=== PATIENT | female | born 1970 | race Caucasian/White ===

== ENCOUNTER 2016-11-19 20:59 | Observation (INO) | payer BC ==
[2016-11-19 21:49] LABS: % IMMATURE GRANULYOCYTES 0.2 % (0.0-1.1); ABSOLUTE IMMATURE GRANULOCYTES 0.02 10^3/uL (0.00-0.10); ADD DIFF? NO; ADD MORPH? NO; ADD SCAN? NO; ATYPICAL LYMPHOCYTE FLAG 10 (0-99); FRAGMENT RBC FLAG 0 (0-99); HEMATOCRIT 38.1 % (38.0-47.0); LEFT SHIFT FLG 0 (0-99); LIPEMIA HEMOLYSIS FLAG 90 (0-99); MEAN CELL HEMOGLOBIN 30.7 pg (27.9-34.1); MEAN CELL HEMOGLOBIN CONCENTR. 34.1 g/dL (32.4-36.7); MEAN CELL VOLUME 89.9 fL (81.5-99.8); MEAN PLATELET VOLUME 10.7 fL (8.7-11.7); PLATELET CLUMPS FLAG 0 (0-99); PLATELET COUNT 257 10^3/uL (150-400); RED BLOOD CELL COUNT 4.24 10^6/uL (4.18-5.33); RED CELL DISTRIBUTION WIDTH 12.5 % (11.5-15.2)
[2016-11-19] MEDS ORDERED: NS 1,000 ML IV ONE (21:49)
[2016-11-19 22:01] LABS: ANION GAP 13 mEq/L (8-16); CALCIUM 9.8 mg/dL (8.5-10.4); CARBON DIOXIDE 22 mEq/l (22-31); CHLORIDE 104 mEq/L (97-110); CREATININE 0.7 mg/dL (0.6-1.0); GLOMERULAR FILTRATION RATE > 60; GLUCOSE 103 mg/dL (70-100); POTASSIUM 3.8 mEq/L (3.5-5.2); SODIUM 139 mEq/L (134-144)
[2016-11-19] MEDS ORDERED: HYDROmorphONE/DILAUDID 1 MG/ML SYR IVP ONE (22:11)
[2016-11-19] MEDS ORDERED: ONDANSETRON 4 MG/2 ML VIAL IVP ONE (22:11)
--- NOTE | 2016-11-19 22:11 | EDPHY ---
H & P Stated Complaint: C/O abd pain x 4 days. Worsening last nigh tinto today. 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 She presents emergency room stating that she has had 4 days of abdominal pain she describes a dull ache she thought it was gas pain that she thought was related to her iron that she takes. She states she did see black stool 1 point. She is unsure of her iron was causing this. She has a gastroenterology appointment tomorrow. She has not had any vomiting but she does report nausea. She complains of mid abdominal pain dull ache. And a little bit no right lower quadrant. She does tell me distally gets worse after she eats and drinks. 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 Past Surgical History: No recent surgery Social History: Denies daily use drugs alcohol tobacco products. Family History: Noncontributory ROS REVIEW OF SYSTEMS: A comprehensive 10 point review of systems is otherwise negative aside from elements mentioned in the history of present illness. Exam Constitutional triage nursing summary reviewed, vital signs reviewed, awake/ alert. Eyes normal conjunctivae and sclera, EOMI, PERRLA. HENT normal inspection, atraumatic, moist mucus membranes, no epistaxis, neck supple/ no meningismus, no raccoon eyes. Respiratory clear to auscultation bilaterally, normal breath sounds, no respiratory distress, no wheezing. Cardiovascular rate normal, regular rhythm, no murmur, no edema, distal pulses normal. Gastrointestinal soft, mild tender palpation right upper quadrant and right mid abdomen also a mild tenderness in the right lower quadrant, no rebound, no guarding, normal bowel sounds, no distension, no pulsatile mass. Genitourinary no CVA tenderness. Musculoskeletal no midline vertebral tenderness, full range of motion, no calf swelling, no tenderness of extremities, no meningismus, good pulses, neurovascularly intact. Skin pink, warm, & dry, no rash, skin atraumatic. Neurologic awake, alert and oriented x 3, AAOx3, moves all 4 extremities equally, motor intact, sensory intact, CN II-XII intact, normal cerebellar, normal vision, normal speech. Psychiatric normal mood/affect. Heme/Lymph/Immune no lymphadenopathy. Differential diagnosis includes but is not limited to and in no particular order : Bowel obstruction, appendicitis, gallbladder disease, diverticulitis, colitis , enteritis, perforated viscus, gastritis, GERD, esophagitis, urinary tract infection, pyelonephritis, kidney stones Medical Decision Making: Plan for this patient IV establishment with blood draw , IV fluids, Zofran for nausea GI cocktail, stool studies, abdominal blood work , ultrasound right upper quadrant for gallbladder. May need to proceed with CT scan. Check test and urinalysis. Re-evaluation: 1227AM: I did go re-evaluate this patient this time she tells me she feels much better after GI cocktail. She is requesting discharge home. She has a follow-up appoint with her fountain brush assembler and GI doctor tomorrow. I went over her blood work with her and ultrasound report. She does have these 2 nodular nonspecific liver masses that the patient states has been previously worked up for focal nodular hyperplasia. I have given her ultrasound report. Given that she feels better after GI cocktail it is possible she has an ulcer. She still at this time going to provide us with a stool sample. I did reexamine her abdomen is soft nontender no guarding or peritoneal signs. She feels better would like to go home. She has follow-up appoint with GI tomorrow. She may need EGD for ulcer evaluation. She does understand return emergency room she develops worsening abdominal pain fever vomiting. Bloody stool. Source: Patient - Personal History LMP (Females 10-55): 8-14 Days Ago Current Tetanus/Diphtheria Vaccine: Unsure Current Tetanus Diphtheria and Acellular Pertussis (TDAP): Unsure - Medical/Surgical History Hx Asthma: Yes Hx Chronic Respiratory Disease: Yes Hx Diabetes: No Hx Cardiac Disease: No Hx Renal Disease: No Hx Cirrhosis: No Hx Alcoholism: No Hx HIV/AIDS: No Hx Splenectomy or Spleen Trauma: No Other PMH: ankylosing spondulosis, chrons disease, celiac disease, hashitoxicosis. - Social History Smoking Status: Former smoker Constitutional: Initial Vital Signs Temperature (C) 37 C 11/19/16 21:05 Heart Rate 102 H 11/19/16 21:05 Respiratory Rate 18 11/19/16 21:05 Blood Pressure 139/74 H 11/19/16 21:05 O2 Sat (%) 98 11/19/16 21:05 O2 Delivery Mode Room Air Allergies/Adverse Reactions: levofloxacin [From Levaquin] Allergy (Verified 11/19/16 21:13) nitrofurantoin [From Macrobid] Allergy (Verified 11/19/16 21:14) Sulfa (Sulfonamide Antibiotics) Allergy (Verified 11/19/16 21:14) Home Medications: Medication Instructions Recorded NK [No Known Home Meds] 11/19/16 Medical Decision Making - Diagnostics Imaging Results: Imaging Impressions Abdomen Ultrasound 11/19/16 22:24 Impression: 2 nonspecific liver masses. Patient states there is a history of focal nodular hyperplasia. Recommend comparing to prior imaging or obtaining a multiphase postcontrast MRI of the abdomen for further evaluation. Otherwise unremarkable right upper quadrant ultrasound. Results called and discussed with Mani Chatman MD at 11/19/2016 23:34. - Data Points Laboratory Results: Laboratory Results 11/19/16 21:40 11/19/16 21:40 11/19/16 11/19/16 11/19/16 23:24 22:30 21:40 WBC RBC Hgb Hct MCV MCH MCHC RDW Plt Count MPV Neut % (Auto) Lymph % (Auto) Bee % (Auto) Eos % (Auto) Baso % (Auto) Nucleat RBC Rel Count Absolute Neuts (auto) Absolute Lymphs (auto) Absolute Monos (auto) Absolute Eos (auto) Absolute Basos (auto) Absolute Nucleated RBC Immature Gran % Immature Gran # PT INR APTT VBG Lactic Acid 0.7 mmol/L mmol/L (0.7-2.1) Sodium Potassium Chloride Carbon Dioxide Anion Gap BUN Creatinine Estimated GFR Glucose Calcium Total Bilirubin Conjugated Bilirubin Unconjugated Bilirubin AST ALT Alkaline Phosphatase Troponin I Total Protein Albumin Lipase Beta HCG, Qual NEGATIVE Urine Color PALE YELLOW Urine Appearance CLEAR Urine pH 5.0 (5.0-7.5) Ur Specific [place] 1.006 (1.002-1.030) Urine Protein NEGATIVE (NEGATIVE) Urine Ketones TRACE H (NEGATIVE) Urine Blood 2+ H (NEGATIVE) Urine Nitrate NEGATIVE (NEGATIVE) Urine Bilirubin NEGATIVE (NEGATIVE) Urine Urobilinogen NEGATIVE EU EU (0.2-1.0) Ur Leukocyte Esterase NEGATIVE (NEGATIVE) Urine RBC 5-10 /hpf H /hpf (0-3) Urine WBC 1-3 /hpf /hpf (0-3) Ur Epithelial Cells TRACE /lpf /lpf (NONE-1+) Urine Bacteria TRACE /hpf H /hpf (NONE SEEN) Urine Mucus TRACE /lpf /lpf (NONE-1+) Urine Glucose NEGATIVE (NEGATIVE) 11/19/16 11/19/16 11/19/16 21:40 21:40 21:40 WBC RBC Hgb Hct MCV MCH MCHC RDW Plt Count MPV Neut % (Auto) Lymph % (Auto) Bee % (Auto) Eos % (Auto) Baso % (Auto) Nucleat RBC Rel Count Absolute Neuts (auto) Absolute Lymphs (auto) Absolute Monos (auto) Absolute Eos (auto) Absolute Basos (auto) Absolute Nucleated RBC Immature Gran % Immature Gran # PT 13.3 SEC SEC (12.0-15.0) INR 1.02 (0.83-1.16) APTT 25.2 SEC SEC (23.0-38.0) VBG Lactic Acid Sodium 139 mEq/L mEq/L (134-144) Potassium 3.8 mEq/L mEq/L (3.5-5.2) Chloride 104 mEq/L mEq/L (97-110) Carbon Dioxide 22 mEq/l mEq/l (22-31) Anion Gap 13 mEq/L mEq/L (8-16) BUN 14 mg/dL mg/dL (7-23) Creatinine 0.7 mg/dL mg/dL (0.6-1.0) Estimated GFR > 60 Glucose 103 mg/dL H mg/dL (70-100) Calcium 9.8 mg/dL mg/dL (8.5-10.4) Total Bilirubin 0.7 mg/dL mg/dL (0.1-1.4) Conjugated Bilirubin 0.3 mg/dL mg/dL (0.0-0.5) Unconjugated Bilirubin 0.4 mg/dL mg/dL (0.0-1.1) AST 21 IU/L IU/L (14-46) ALT 28 IU/L IU/L (9-52) Alkaline Phosphatase 69 IU/L IU/L (38-126) Troponin I < 0.012 ng/mL ng/mL (0.000-0.034) Total Protein 8.2 g/dL g/dL (6.3-8.2) Albumin 4.7 g/dL g/dL (3.5-5.0) Lipase 63 IU/L IU/L (23-300) Beta HCG, Qual Urine Color Urine Appearance Urine pH Ur Specific [place] Urine Protein Urine Ketones Urine Blood Urine Nitrate Urine Bilirubin Urine Urobilinogen Ur Leukocyte Esterase Urine RBC Urine WBC Ur Epithelial Cells Urine Bacteria Urine Mucus Urine Glucose 11/19/16 21:40 WBC 11.70 10^3/uL H 10^3/uL (3.80-9.50) RBC 4.24 10^6/uL 10^6/uL (4.18-5.33) Hgb 13.0 g/dL g/dL (12.6-16.3) Hct 38.1 % % (38.0-47.0) MCV 89.9 fL fL (81.5-99.8) MCH 30.7 pg pg (27.9-34.1) MCHC 34.1 g/dL g/dL (32.4-36.7) RDW 12.5 % % (11.5-15.2) Plt Count 257 10^3/uL 10^3/uL (150-400) MPV 10.7 fL fL (8.7-11.7) Neut % (Auto) 77.2 % H % (39.3-74.2) Lymph % (Auto) 15.0 % % (15.0-45.0) Bee % (Auto) 6.9 % % (4.5-13.0) Eos % (Auto) 0.4 % L % (0.6-7.6) Baso % (Auto) 0.3 % % (0.3-1.7) Nucleat RBC Rel Count 0.0 % % (0.0-0.2) Absolute Neuts (auto) 9.02 10^3/uL H 10^3/uL (1.70-6.50) Absolute Lymphs (auto) 1.76 10^3/uL 10^3/uL (1.00-3.00) Absolute Monos (auto) 0.81 10^3/uL H 10^3/uL (0.30-0.80) Absolute Eos (auto) 0.05 10^3/uL 10^3/uL (0.03-0.40) Absolute Basos (auto) 0.04 10^3/uL 10^3/uL (0.02-0.10) Absolute Nucleated RBC 0.00 10^3/uL 10^3/uL (0-0.01) Immature Gran % 0.2 % % (0.0-1.1) Immature Gran # 0.02 10^3/uL 10^3/uL (0.00-0.10) PT INR APTT VBG Lactic Acid Sodium Potassium Chloride Carbon Dioxide Anion Gap BUN Creatinine Estimated GFR Glucose Calcium Total Bilirubin Conjugated Bilirubin Unconjugated Bilirubin AST ALT Alkaline Phosphatase Troponin I Total Protein Albumin Lipase Beta HCG, Qual Urine Color Urine Appearance Urine pH Ur Specific [place] Urine Protein Urine Ketones Urine Blood Urine Nitrate Urine Bilirubin Urine Urobilinogen Ur Leukocyte Esterase Urine RBC Urine WBC Ur Epithelial Cells Urine Bacteria Urine Mucus Urine Glucose Medications Given: Discontinued Medications Al Hydroxide/Mg Hydroxide (Maalox Susp) 30 ml PO ONCE ONE Stop: 11/19/16 22:25 Last Admin: 11/19/16 22:43 Dose: 30 ml Sodium Chloride (Ns) 1,000 mls @ 0 mls/hr IV ONCE ONE PRN Reason: Wide Open Stop: 11/19/16 21:50 Last Admin: 11/19/16 21:50 Dose: 1,000 mls Departure - Departure Disposition: Home, Routine, Self-Care Clinical Impression: Abdominal pain Qualifiers: Abdominal location: generalized Qualified Code(s): R10.84 - Generalized abdominal pain Condition: Good Instructions: Abdominal Pain (ED) Additional Instructions: 1. Return emergency room if develops worsening abdominal pain fever vomiting. 2. Please follow up with Gastroenterology tomorrow at your previously scheduled appointment as well as your fountain brush assembler. Referrals: DAVID NESS [Primary Care Provider] - As per Instructions
[2016-11-19] MEDS ORDERED: MAG HYDROX/AL HYDROX/SIMETH 30 ML UDCUP PO ONE (22:24)
[2016-11-19] MEDS ORDERED: HYOSCYAMINE SULFATE 0.125 MG TAB PO ONE (22:24)
[2016-11-19] MEDS ORDERED: LIDOCAINE 2% VISCOUS 15 ML UDCUP PO ONE (22:24)
[2016-11-19 22:32] LABS: ALANINE AMINOTRANSFERASE 28 IU/L (9-52); ALBUMIN 4.7 g/dL (3.5-5.0); ALKALINE PHOSPHATASE 69 IU/L (38-126); ASPARTATE AMINOTRANSFERASE 21 IU/L (14-46); BILIRUBIN,TOTAL 0.7 mg/dL (0.1-1.4); BILIRUBIN-CONJUGATED 0.3 mg/dL (0.0-0.5); BILIRUBIN-UNCONJUGATED 0.4 mg/dL (0.0-1.1); TOTAL PROTEIN 8.2 g/dL (6.3-8.2)
[2016-11-19 22:37] LABS: INR 1.02 (0.83-1.16); PROTIME(PATIENT) 13.3 SEC (12.0-15.0)
[2016-11-19 22:38] LABS: APTT 25.2 SEC (23.0-38.0)
[2016-11-19 23:04] LABS: TROPONIN I < 0.012 ng/mL (0.000-0.034)
[2016-11-19 23:43] LABS: COLOR PALE YELLOW; LEUKOCYTE ESTERASE,URINE NEGATIVE (NEGATIVE); NITRITE,URINE NEGATIVE (NEGATIVE)
[2016-11-19 23:50] LABS: BACTERIA TRACE /hpf (NONE SEEN); MUCUS TRACE /lpf (NONE-1+)
[2016-11-20] MEDS ORDERED: ONDANSETRON DISINTEGRATING 4 MG TAB ONE (01:43)
[2016-11-20] MEDS ORDERED: ONDANSETRON 4 MG/2 ML VIAL ONE ×2 (01:43→03:52)
[2016-11-20] MEDS ORDERED: ONDANSETRON 4 MG/2 ML VIAL IVP ONE (01:45)
[2016-11-20] MEDS ORDERED: ERTAPENEM 1 GM in NS 100 ML IV ONE (01:47)
[2016-11-20] MEDS ORDERED: MIDAZOLAM 2 MG/2 ML VIAL IVP ONE ×2 (01:57→05:14)
[2016-11-20] MEDS ORDERED: NS 1,000 ML IV ONE (01:58)
[2016-11-20] MEDS ORDERED: BUPIVACAINE 0.5% 30 ML SDV ONE (02:14)
[2016-11-20] MEDS ORDERED: HEPARIN 1000 UNIT/1 ML MDV ONE (02:15)
[2016-11-20] MEDS ORDERED: ceFAZolin 1 GM/5 ML SYR ONE (02:15)
--- NOTE | 2016-11-20 02:52 | PDANEPAE ---
ANE History of Present Illness Acute appy ANE Past Medical History - Endocrine History Hx Diabetes: No ANE Review of Systems - Exercise capacity METS (RN): 4 METS ANE Patient History - Allergies Allergies/Adverse Reactions: levofloxacin [From Levaquin] Allergy (Verified 11/19/16 21:13) nitrofurantoin [From Macrobid] Allergy (Verified 11/19/16 21:14) Sulfa (Sulfonamide Antibiotics) Allergy (Verified 11/19/16 21:14) - Home Medications Home medications: home medication list seen and reviewed Home Medications: Klonopin 11/20/16 [Last Taken Unknown] - NPO status NPO Since - Liquids (Date): 11/19/16 NPO Since - Liquids (Time): 23:00 NPO Since - Solids (Date): 11/19/16 NPO Since - Solids (Time): 20:00 - Anes Hx Anes Hx: post operative nausea and vomiting - Smoking Hx Smoking Status: Former smoker ANE Labs/Vital Signs - Labs Result Diagrams: 11/19/16 21:40 11/19/16 21:40 - Vital Signs Blood Pressure: 123/74 Heart Rate: 99 Respiratory Rate: 20 O2 Sat (%): 100 Weight: 47.174 kg ANE Physical Exam - Airway Neck exam: FROM Mallampati Score: Class 1 Mouth exam: normal dental/mouth exam - Pulmonary Pulmonary: no respiratory distress - Cardiovascular Cardiovascular: regular rate and rhythym - ASA Status ASA Status: II, E ANE Anesthesia Plan Anesthesia Plan: general endotracheal anesthesia (RSI)
[2016-11-20] MEDS ORDERED: ROCURONIUM 50 MG/5 ML VIAL ONE (03:10)
[2016-11-20] MEDS ORDERED: GLYCOPYRROLATE 0.2 MG/1 ML VIAL ONE ×2 (03:10→03:54)
[2016-11-20] MEDS ORDERED: LIDOCAINE 2% 5 ML SDV ONE (03:11)
[2016-11-20] MEDS ORDERED: fentaNYL 100 MCG/2 ML INJ ONE ×2 (03:12→03:53)
[2016-11-20] MEDS ORDERED: PROPOFOL 200 MG/20 ML VIAL ONE (03:12)
[2016-11-20] MEDS ORDERED: ONDANSETRON 4 MG/2 ML VIAL IVP PRN ×3 (03:37→05:34)
[2016-11-20] MEDS ORDERED: PROMETHAZINE HCL 25 MG/ML INJ IVP PRN ×2 (03:37→05:35)
[2016-11-20] MEDS ORDERED: NALOXONE HCL 0.4 MG/ML INJ IVP PRN ×2 (03:37→05:34)
[2016-11-20] MEDS ORDERED: fentaNYL 100 MCG/2 ML INJ IVP PRN ×2 (03:37→05:32)
[2016-11-20] MEDS ORDERED: HYDROmorphONE/DILAUDID 1 MG/ML SYR IVP PRN (03:37)
[2016-11-20] MEDS ORDERED: NEOSTIGMINE METHYLSULFATE 5 MG/5 ML SYR ONE (03:54)
--- NOTE | 2016-11-20 04:55 | PDGENHP ---
History & Physical Chief Complaint: RT SIDED ABDOMINAL PAIN FOR ONE WEEK History of Present Illness: FEMALE WITH UNUSUAL PAIN RT SIDE WITH ANOREXIA AND NAUSEA. OVERALL FEELS VERY BAD. LMP 2 WEEKS AGO. -PREG TEST/ WBC 12K. US SHOWS 14 MM APPENDIX Pertinent Past, Social, Family History: PMH:CELIAC/ FOCAL NODULAR HYPERPLASIA. ALL: LEVOQUIN, SULFA, CECLOR, NITROFURANTIN. ROS -. FAM HX -. SOC: - TOB Relevant Physical Exam: HEENT NONICTERIC, AFEBRILE,PEERLA, NO ORAL LESIONS. CHEST CLEAR. COR RR WO M. ABD SOFT, TENDER RLQ AND RUQ. EXTREM: OK Cardiorespiratory Assessment: IMPR: ACUTE APPENDICITIS. PLAN LAP APPE/ RISKS AND OPTIONS FULLY DISCUSSED
[2016-11-20] MEDS ORDERED: KETOROLAC 30 MG/1 ML SDV ONE ×2 (05:01→05:19)
--- NOTE | 2016-11-20 05:03 | POSTOPPROG ---
Post Op Note Date of Operation: 11/20/16 Surgeon: Daniel Lozano Anesthesiologist: BOBBY Anesthesia: GET(General Endotracheal) Pre-op Diagnosis: ACUTE APPE Post-op Diagnosis: SAME + RT LOBE LIVER MASS Indication: PAIN Procedure: LAP APPE, LAP RESECTION OF RT LOBE LIVER MASS Findings: SUBACUTE SWOLLEN APPENDIX, 4 CM RT LOBE LIVER MASS WITH ? INFARCTION Inf/Abcess present in the surg proc area at time of surgery?: Yes Depth: Organ Space EBL: Minimal Complications: 0 Specimen(s): APPENDIX AND LIVER MASS
[2016-11-20] MEDS ORDERED: OXYCODONE/APAP 5/325 TAB PO PRN (05:04)
[2016-11-20] MEDS ORDERED: HYDROmorphONE/DILAUDID 1 MG/ML SYR ONE (05:06)
[2016-11-20] MEDS ORDERED: MIDAZOLAM 2 MG/2 ML VIAL ONE (05:08)
--- NOTE | 2016-11-20 05:13 | POSTANESTH ---
Post Anesthetic Evaluation Cardiovascular Status: Normal, Stable Respiratory Status: Normal, Stable Level of Consciousness/Mental Status: Can Participate in Eval Pain Control: Adequate, Prn Tx Ordered Nausea/Vomiting Control: Adequate, Prn Tx Ordered Complications Possibly Related to Anesthesia: None Noted
[2016-11-20] MEDS ORDERED: D5W 1/2 NS W/ 20 KCl/L 1,000 ML IV SCH (05:15)
[2016-11-20] MEDS: HYDROmorphONE/DILAUDID 1 MG/ML SYR IVP PRN ×6 (05:18→17:54)
[2016-11-20] MEDS ORDERED: KETOROLAC 15 MG/1 ML SDV ONE (05:25)
[2016-11-20] MEDS: KETOROLAC 15 MG/1 ML SDV IVP SCH ×4 (06:26→23:48)
[2016-11-20] MEDS ORDERED: ACETAMINOPHEN 325 MG TAB PO PRN ×2 (08:05→17:17)
[2016-11-20 09:41] LABS: % IMMATURE GRANULYOCYTES 0.3 % (0.0-1.1); ABSOLUTE IMMATURE GRANULOCYTES 0.04 10^3/uL (0.00-0.10); ADD DIFF? NO; ADD MORPH? NO; ADD SCAN? NO; ATYPICAL LYMPHOCYTE FLAG 10 (0-99); FRAGMENT RBC FLAG 0 (0-99); HEMATOCRIT 31.8 % (38.0-47.0); LEFT SHIFT FLG 10 (0-99); LIPEMIA HEMOLYSIS FLAG 90 (0-99); MEAN CELL HEMOGLOBIN 31.2 pg (27.9-34.1); MEAN CELL HEMOGLOBIN CONCENTR. 34.6 g/dL (32.4-36.7); MEAN CELL VOLUME 90.1 fL (81.5-99.8); MEAN PLATELET VOLUME 10.5 fL (8.7-11.7); PLATELET CLUMPS FLAG 0 (0-99); PLATELET COUNT 222 10^3/uL (150-400); RED BLOOD CELL COUNT 3.53 10^6/uL (4.18-5.33); RED CELL DISTRIBUTION WIDTH 12.6 % (11.5-15.2)
[2016-11-20] MEDS ORDERED: HYDROCODONE/APAP 5/325 TAB PO PRN (10:14)
--- NOTE | 2016-11-20 15:25 | ASMTCASEMG ---
Living Arrangements What is your living arrangement? Who do you live Answers: With Partner with? Type Of Residence What kind of residence do you live in? Answers: House Stairs in Home Environment Answers: Yes Discharge Plan Comments Coordination Status Comments Notes: Pt admitted with R quadrant abdominal pain. S/p lap appy and removal/biopsy of liver mass. Pt appea red anxious and tearful when CM saw her. Hx celiac disease. Anticipate she will d/c with no CM needs but will continue to follow for any unanticipated needs. Date Signed: 11/20/2016 03:24 PM Electronically Signed By:Tash Barker
[2016-11-20] MEDS ORDERED: ONDANSETRON DISINTEGRATING 4 MG TAB PO PRN (17:17)
[2016-11-20] MEDS ORDERED: HYDROmorphONE/DILAUDID 2 MG TAB PO PRN (17:17)
[2016-11-21] MEDS ORDERED: ERTAPENEM 1 GM in NS 100 ML IV SCH (01:00)
[2016-11-21 06:05] LABS: % IMMATURE GRANULYOCYTES 0.2 % (0.0-1.1); ABSOLUTE IMMATURE GRANULOCYTES 0.02 10^3/uL (0.00-0.10); ADD DIFF? NO; ADD MORPH? NO; ADD SCAN? NO; ATYPICAL LYMPHOCYTE FLAG 30 (0-99); FRAGMENT RBC FLAG 0 (0-99); HEMATOCRIT 30.2 % (38.0-47.0); HEMOGLOBIN 9.9 g/dL (12.6-16.3); LEFT SHIFT FLG 0 (0-99); LIPEMIA HEMOLYSIS FLAG 80 (0-99); MEAN CELL HEMOGLOBIN 30.6 pg (27.9-34.1); MEAN CELL HEMOGLOBIN CONCENTR. 32.8 g/dL (32.4-36.7); MEAN CELL VOLUME 93.2 fL (81.5-99.8); MEAN PLATELET VOLUME 11.4 fL (8.7-11.7); PLATELET CLUMPS FLAG 10 (0-99); PLATELET COUNT 191 10^3/uL (150-400); RED BLOOD CELL COUNT 3.24 10^6/uL (4.18-5.33); RED CELL DISTRIBUTION WIDTH 12.9 % (11.5-15.2)
[2016-11-21] MEDS: KETOROLAC 15 MG/1 ML SDV IVP SCH (06:24)
[2016-11-21] MEDS ORDERED: KETOROLAC 30 MG/1 ML SDV IVP ONE (07:45)
[2016-11-21 08:27] VITALS: BP 109/60; PULSE 72; RESP 14; TEMP 98.3; O2SAT 93
--- NOTE | 2016-11-21 15:37 | ASDISCHSUM ---
Discharge Information Plan Status:Home with No Needs Medically Cleared to Leave: Discharge Date:11/21/2016 11:26 AM CM D/C Disposition:Home, Routine, Self-Care ADT D/C Disposition:Home, Routine, Self-Care Projected Discharge Date:11/21/2016 11:26 AM Transportation at D/C:Self Discharge Delay Reason: Follow-Up Date:11/21/2016 11:26 AM Discharge Slot: Final Diagnosis: Placement Information Patient Contact Information Contact Name:ADAIR Relationship:Gilma Address: Work Phone: City: [facility] Phone: State/Zip Code: Email: Financial Information Financial Class:HMO and PPO Plans Primary Plan Desc: OUT OF STATE PPO Primary Plan Number:[id number] Secondary Plan Desc: Secondary Plan Number: Assessment Information [facility] Initial CM Assessment Living Arrangements What is your living Answers: With Partner arrangement? Who do you live with? Type Of Residence What kind of residence do Answers: House you live in? Stairs in Home Answers: Yes Environment Discharge Plan Comments Coordination Status Comments Notes: Pt admitted with R quadrant abdominal pain. S/p lap appy and removal/biopsy of liver mass. Pt appeared anxious and tearful when CM saw her. Hx celiac disease. Anticipate she will d/c with no CM needs but will continue to follow for any unanticipated needs. Date Signed: 11/20/2016 03:24 PM Electronically Signed By:Tash Barker Intervention Information
[2016-11-22] MEDS ORDERED: ENOXAPARIN 40 MG/0.4 ML SYR SC SCH (09:00)
== END 2016-11-21 11:26 | disposition home or self-care (01) ==
LOC: INTOOBSV 11-20 01:48 → F3N 11-20 05:56
PROVIDERS: ADMIT Surgery; ATTEND Surgery
DX: K35.80 Unspecified acute appendicitis (principal); K76.89 Other specified diseases of liver; K90.0 Celiac disease; D50.9 Iron deficiency anemia, unspecified
CPT/HCPCS: 44970; 47379; 76705; 96361; 96365; 96375; 96376; 99285; G0378; J1170; J1200; J1335; J1885; J2250; J2405; J2704; J2710; J3010

== ENCOUNTER → 2016-11-21 | Outpatient (CLI) | payer BC | LOC: FIMAGING 16:54 | PROVIDERS: ATTEND Surgery | DX: J90 Pleural effusion, not elsewhere classified (principal) ==

== ENCOUNTER 2016-11-27 16:40 | Emergency (ER) | payer BC ==
[2016-11-27] MEDS ORDERED: NS 1,000 ML IV ONE (17:56)
[2016-11-27 18:19] VITALS: TEMP 98.8
[2016-11-27 18:20] LABS: % IMMATURE GRANULYOCYTES 0.4 % (0.0-1.1); ABSOLUTE IMMATURE GRANULOCYTES 0.03 10^3/uL (0.00-0.10); ADD DIFF? NO; ADD MORPH? NO; ADD SCAN? NO; ATYPICAL LYMPHOCYTE FLAG 10 (0-99); FRAGMENT RBC FLAG 0 (0-99); HEMATOCRIT 37.1 % (38.0-47.0); HEMOGLOBIN 12.3 g/dL (12.6-16.3); LEFT SHIFT FLG 0 (0-99); LIPEMIA HEMOLYSIS FLAG 80 (0-99); MEAN CELL HEMOGLOBIN 30.1 pg (27.9-34.1); MEAN CELL HEMOGLOBIN CONCENTR. 33.2 g/dL (32.4-36.7); MEAN CELL VOLUME 90.9 fL (81.5-99.8); MEAN PLATELET VOLUME 10.6 fL (8.7-11.7); PLATELET CLUMPS FLAG 0 (0-99); PLATELET COUNT 289 10^3/uL (150-400); RED BLOOD CELL COUNT 4.08 10^6/uL (4.18-5.33); RED CELL DISTRIBUTION WIDTH 12.1 % (11.5-15.2)
[2016-11-27 18:30] LABS: ANION GAP 14 mEq/L (8-16); CALCIUM 9.7 mg/dL (8.5-10.4); CARBON DIOXIDE 24 mEq/l (22-31); CHLORIDE 102 mEq/L (97-110); CREATININE 0.7 mg/dL (0.6-1.0); GLOMERULAR FILTRATION RATE > 60; GLUCOSE 99 mg/dL (70-100); POTASSIUM 4.6 mEq/L (3.5-5.2); SODIUM 140 mEq/L (134-144)
--- NOTE | 2016-11-27 18:47 | EDPHY ---
H & P Time Seen by Provider: 11/27/16 18:15 HPI/ROS: CHIEF COMPLAINT: Right-sided abdominal pain HISTORY OF PRESENT ILLNESS: Patient had appendectomy and liver biopsy/ resection on 11/[address] Daniel Lozano. She was doing better until Saturday when she was folding clothes and suddenly felt very tired achy and had nausea. Saturday morning she woke up with pretty severe right upper quadrant abdominal pain which radiated to her back. Continues to be severe and is a little bit better with Advil. It is associated with worsening when she takes a deep breath and a little bit of a nonproductive cough. Not associated with vomiting or recent trauma. She has had maybe a subjective fever but no actual elevated temperature above 100.5 documented. She was seen in her primary care physician's office here and sent for further evaluation. REVIEW OF SYSTEMS: Eye: no change in vision ENT: no sore throat Cardiac: No syncope. Pulmonary: Not short of breath the pain is worse with deep respiration Abdomen: The HPI Musculoskeletal: no back pain Skin: no rash Neuro: no headache Constitutional: no fever : no urinary symptoms A comprehensive 10 point review of systems is otherwise negative aside from elements mentioned in the history of present illness. PAST MEDICAL HISTORY: Includes Crohn's disease, celiac, ankylosing spondylitis. Focal nodular hyperplasia liver Social history: No alcohol, here with boyfriend General Appearance: Alert and conversant, cooperative. Eyes: No scleral icterus. ENT, Mouth: Normal mucous membranes. Respiratory: Normal respiratory effort, breath sounds equal, lungs are clear to auscultation. Mild splinting. Cardiovascular: Regular rate and rhythm. Gastrointestinal: Right upper quadrant tenderness. No tenderness over McBurney 's point. Neurological: Alert and oriented x3. Normally conversant. Face symmetric, normal movement and sensation in all extremities. Skin: Warm and dry, no rashes. Incisions covered with Steri-Strips clean dry and intact Musculoskeletal: No peripheral edema and no joint swelling. Psychiatric: Not agitated. Emergency Department course/MDM: Differential is broad and includes but not limited to postoperative bleeding, abscess, atelectasis, pulmonary embolism. Screening with D-dimer discussed but I think that with recent liver biopsy it is likely to be elevated. Declined additional pain medication. CT scanning chest abdomen and pelvis discussed with the patient and consented. She is requesting not to be screened with D-dimer but proceed directly to CT. 2019: Negative CT chest and abdomen per Charlie. No pulmonary embolism or postoperative complications seen. 2039: Results discussed with the patient. I think it is reasonable to send her home with symptomatic treatment, patient states agreement with this plan. 2041: Discussed with Dr. Arias on-call for Dr. Lozano. Smoking Status: Former smoker Constitutional: Initial Vital Signs Temperature (C) 36.8 C 11/27/16 17:32 Heart Rate 81 11/27/16 17:32 Respiratory Rate 20 11/27/16 17:32 Blood Pressure 118/69 11/27/16 17:32 O2 Sat (%) 99 11/27/16 17:32 O2 Delivery Mode Room Air Allergies/Adverse Reactions: gluten Allergy (Verified 11/27/16 17:31) levofloxacin [From Levaquin] Allergy (Verified 11/27/16 17:31) nitrofurantoin [From Macrobid] Allergy (Verified 11/27/16 17:31) Sulfa (Sulfonamide Antibiotics) Allergy (Verified 11/27/16 17:31) Home Medications: Medication Instructions Recorded Herbals/Supplements -Info Only 1 ea PO DAILY 11/20/16 Acetaminophen [Tylenol 325mg (*)] 650 mg PO Q4HRS PRN #0 tab 11/21/16 HYDROmorphone HCL [Dilaudid 2 mg 2 - 4 mg PO Q4HRS PRN #10 tab 11/21/16 (*)] Ibuprofen [Motrin (*)] 600 mg PO Q6H #40 tab 11/21/16 Ondansetron Odt [Zofran Odt 4 mg 4 mg PO Q6HRS PRN #14 tab 11/21/16 (*)] Medical Decision Making - Diagnostics Imaging Results: Imaging Impressions Abdomen CT 11/27/16 18:47 Impression: 1. Interval wedge resection of the right hepatic lobe lesion, with no visible complication. 2. Hyperenhancing left hepatic lesion, indeterminate, possibly representing focal nodular hyperplasia, adenoma, or other etiology. 3. No visible pulmonary embolus. 4. Trace right pleural effusion. Findings discussed with Enmanuel Sánchez M.D., on November 27, 2016 at 2019. E:amm Chest/Thorax CTA 11/27/16 18:47 Impression: 1. Interval wedge resection of the right hepatic lobe lesion, with no visible complication. 2. Hyperenhancing left hepatic lesion, indeterminate, possibly representing focal nodular hyperplasia, adenoma, or other etiology. 3. No visible pulmonary embolus. 4. Trace right pleural effusion. Findings discussed with Enmanuel Sánchez M.D., on November 27, 2016 at 2019. E:amm - Data Points Laboratory Results: Laboratory Results 11/27/16 18:00 11/27/16 18:00 11/27/16 11/27/16 11/27/16 18:16 18:00 18:00 WBC 8.45 10^3/uL 10^3/uL (3.80-9.50) RBC 4.08 10^6/uL L 10^6/uL (4.18-5.33) Hgb 12.3 g/dL L g/dL (12.6-16.3) Hct 37.1 % L % (38.0-47.0) MCV 90.9 fL fL (81.5-99.8) MCH 30.1 pg pg (27.9-34.1) MCHC 33.2 g/dL g/dL (32.4-36.7) RDW 12.1 % % (11.5-15.2) Plt Count 289 10^3/uL 10^3/uL (150-400) MPV 10.6 fL fL (8.7-11.7) Neut % (Auto) 67.9 % % (39.3-74.2) Lymph % (Auto) 24.1 % % (15.0-45.0) [place] % (Auto) 6.3 % % (4.5-13.0) Eos % (Auto) 0.8 % % (0.6-7.6) Baso % (Auto) 0.5 % % (0.3-1.7) Nucleat RBC Rel Count 0.0 % % (0.0-0.2) Absolute Neuts (auto) 5.74 10^3/uL 10^3/uL (1.70-6.50) Absolute Lymphs (auto) 2.04 10^3/uL 10^3/uL (1.00-3.00) Absolute Monos (auto) 0.53 10^3/uL 10^3/uL (0.30-0.80) Absolute Eos (auto) 0.07 10^3/uL 10^3/uL (0.03-0.40) Absolute Basos (auto) 0.04 10^3/uL 10^3/uL (0.02-0.10) Absolute Nucleated RBC 0.00 10^3/uL 10^3/uL (0-0.01) Immature Gran % 0.4 % % (0.0-1.1) Immature Gran # 0.03 10^3/uL 10^3/uL (0.00-0.10) Sodium 140 mEq/L mEq/L (134-144) Potassium 4.6 mEq/L mEq/L (3.5-5.2) Chloride 102 mEq/L mEq/L (97-110) Carbon Dioxide 24 mEq/l mEq/l (22-31) Anion Gap 14 mEq/L mEq/L (8-16) BUN 12 mg/dL mg/dL (7-23) Creatinine 0.7 mg/dL mg/dL (0.6-1.0) Estimated GFR > 60 Glucose 99 mg/dL mg/dL (70-100) Calcium 9.7 mg/dL mg/dL (8.5-10.4) Total Bilirubin 0.3 mg/dL mg/dL (0.1-1.4) Conjugated Bilirubin 0.3 mg/dL mg/dL (0.0-0.5) Unconjugated Bilirubin 0.0 mg/dL mg/dL (0.0-1.1) AST 21 IU/L IU/L (14-46) ALT 40 IU/L IU/L (9-52) Alkaline Phosphatase 79 IU/L IU/L (38-126) Total Protein 7.5 g/dL g/dL (6.3-8.2) Albumin 4.4 g/dL g/dL (3.5-5.0) Lipase 85 IU/L IU/L (23-300) Medications Given: Discontinued Medications Sodium Chloride (Ns) 1,000 mls @ 0 mls/hr IV ONCE ONE; Wide Open PRN Reason: Protocol Stop: 11/27/16 17:57 Last Admin: 11/27/16 18:17 Dose: 1,000 mls Departure - Departure Disposition: Home, Routine, Self-Care Clinical Impression: Postoperative right upper quadrant abdominal pain Abdominal pain Qualifiers: Abdominal location: right upper quadrant Qualified Code(s): R10.11 - Right upper quadrant pain Condition: Good Instructions: Acute Abdominal Pain (ED) Referrals: DAVID NESS [Primary Care Provider] - As per Instructions Daniel Lozano MD [Medical Doctor] - As per Instructions
[2016-11-27] MEDS ORDERED: IOPAMIDOL (ISOVUE 370) 100 ML BTL IV ONE (18:58)
[2016-11-27 19:00] LABS: ALBUMIN 4.4 g/dL (3.5-5.0); BILIRUBIN,TOTAL 0.3 mg/dL (0.1-1.4); BILIRUBIN-CONJUGATED 0.3 mg/dL (0.0-0.5); TOTAL PROTEIN 7.5 g/dL (6.3-8.2)
[2016-11-27 20:26] VITALS: BP 140/80; PULSE 80; RESP 20; O2SAT 99
--- NOTE | 2016-12-02 20:58 | GOP ---
[f rep st] OPERATIVE REPORT DATE OF OPERATION: SURGEON: Daniel Lozano MD HEADLINE WRITER: There was no first assistant. ANESTHESIOLOGIST: Dr. Rordiguez. PREOPERATIVE DIAGNOSIS: Acute appendicitis and right lobe liver mass. POSTOPERATIVE DIAGNOSIS: Acute appendicitis and right lobe liver mass. PROCEDURE PERFORMED: Laparoscopic appendectomy and laparoscopic resection of right lobe liver mass. FINDINGS: The patient was found to have subacute swollen appendix. She also had a 4 cm right lobe l iver mass with questionable infarction. DESCRIPTION OF PROCEDURE: The patient was taken to the operating room, where she received satisfacto ry general endotracheal anesthesia by Dr. Rodriguez. She was placed in the supine position and pr epped and draped in usual sterile fashion. A periumbilical incision was made, a Veress needle insert ed, and pneumoperitoneum was established. Trocar was introduced. Laparoscope introduced. Good visu alization was obtained. Two other trocars were placed in the lower abdomen under direct vision. The appendix was freed up from inflammatory adhesions. It was quite swollen and inflamed. The mesoappe ndix was thickened. It was divided with the Harmonic Scalpel. The appendix was dissected back to th e base in the cecum, where it was then divided with Endo-OMAR stapler, placed in a specimen bag and ex tracted through the upper midline port site. The wound was irrigated. Hemostasis appeared to be victorino quate. However, on looking in the upper abdomen, there was marked inflammation in the right lobe of the liver with some purulent exudate as well. At first it was thought to be the gallbladder, but aft er freeing the area up, it appeared to be a mass extending off the right lobe of the liver. The gall bladder was separate and not involved. The mass was probably consistent with focal nodular hyperplas ia. An additional half of a 5 mm trocar was placed in the upper abdomen, and using the Harmonic Scal pel, the mass was resected from the right lobe of the liver. Hemostasis was obtained with the Sotelo ic Scalpel and electrocautery. The specimen was placed in a specimen bag and extracted through the u mbilical midline port site, which had to be somewhat dilated and enlarged. The specimen was removed. Hemostasis was assured. Some Sriram hemostatic agent was placed over the cut edge of the liver as well as some omental tissue packed into that area. Hemostasis appeared to be quite adequate. The tr ocars were removed under direct vision. Trocar sites were closed with 0 Vicryl for the fascia, 4-0 M onocryl subcuticular stitch for the skin. All layers infiltrated with 0.5% Marcaine. Blood loss was negligible. Taken to recovery room in good condition. /[id number]/MODL
== END 2016-11-27 20:57 | disposition home or self-care (01) ==
DX: R10.11 Right upper quadrant pain (principal); G89.18 Other acute postprocedural pain; E86.9 Volume depletion, unspecified; Z87.891 Personal history of nicotine dependence; Z90.49 Acquired absence of other specified parts of digestive tract
CPT/HCPCS: Q9967

== ENCOUNTER 2016-12-09 14:22 | Emergency (ER) | payer BC ==
[2016-12-09 14:40] VITALS: RESP 18; TEMP 99.5
--- NOTE | 2016-12-09 15:16 | EDPHY ---
H & P Stated Complaint: Ian Ashley liver Rxsn, 11/20-redness to area 3 days. Time Seen by Provider: 12/09/16 15:11 HPI/ROS: CHIEF COMPLAINT: Possible post-surgery infection HISTORY OF PRESENT ILLNESS: This patient is a 46 year old female complaining of abdominal pain, nausea, and an erythematous area on the right side of her abdomen first noted Saturday, four days ago. She had a laparoscopic appendectomy and liver resection 11/20/16 here at [facility] with Dr. Lozano. About one week later, she saw her primary care physician, Dr. Hernandez, due to an elevated temperature and malaise. She has had dizziness and asthma symptoms following her surgery, and has had continued abdominal pain, primarily right upper quadrant. She was evaluated in this emergency department 11/27/[address] scan at that time to rule out PE, which was negative. She now has a mottled area of skin on her right abdomen, and has had persistent nausea. She endorses frequent heating pad use. She states she pressed lightly on the mottled area and felt considerable pain deep in her abdomen., she was unable to eat because of pain. and her menstrual cycle began on two days ago. She is concerned Advil or Tylenol use may be causing her stomach symptoms. She endorses dysuria, has had right-sided kidney pain since her surgery. She currently has yeast infection due to antibiotic use, so is not sure whether her dysuria may be related to this. She states she may have hematuria, but is not sure due to beginning her menstrual cycle. May have chronic kidney issue, has apparently had hematuria in the past. She endorses low -grade fever. She denies chest pain, shortness of breath, abnormal bowel movements, or other associated symptoms. REVIEW OF SYSTEMS: A ten point review of systems was performed and is negative with the exception of the items mentioned in the HPI and right heel pain. Past medical history: Celiac disease. Ankylosing spondylitis. Vertigo. Bilateral hearing loss. History of Dipak-Meyer virus. Hashitoxicosis (becomes hyperthyroid under stress). 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 Past surgical history: Appendectomy on 11/20/2016 with resection of liver mass. Past medical records reviewed including Emergency Department visit and operative notes from 11/20/16. Family history: Unspecified kidney disease. Social history: Friend at bedside. Single. Lives in [place]. Former tobacco user. General Appearance: Alert. Vital signs reviewed. Blood pressure 141/82. Eyes: Pupils equal and round, no conjunctival injection, no discharge. Anicteric. ENT, Mouth: Mucous membranes are moist, no oropharyngeal erythema or edema. Neck: No lymphadenopathy, supple. Respiratory: Lungs are clear to auscultation; no wheezes, rales, or rhonchi. Cardiovascular: Regular rate and rhythm; no murmur, rub, or gallop. Gastrointestinal: Well-healing surgical incisions with some ecchymosis adjacent. Mottled appearance of lower right abdominal area--skin temperature is normal and consistent over the entire abdomen. Tenderness just below and slightly to the right of umbilicus, above 1 of the incisions--no guarding. Abdomen is soft, no masses or organomegaly, bowel sounds normal. Skin: Warm and dry, no rashes on exposed skin, normal color. Back: Nontender to palpation over the thoracolumbar spine. No CVAT. Extremities: No lower extremity edema, no calf tenderness or swelling. Neurological: Alert and oriented. Moving all four extremities easily and equally. Psychiatric: Normal affect. - Personal History LMP (Females 10-55): Now Current Tetanus/Diphtheria Vaccine: Yes Tetanus Vaccine Date: 2014 - Medical/Surgical History Hx Asthma: Yes Hx Chronic Respiratory Disease: Yes Hx Diabetes: No Hx Cardiac Disease: No Hx Renal Disease: No Hx Cirrhosis: No Hx Alcoholism: No Hx HIV/AIDS: No Hx Splenectomy or Spleen Trauma: No Other PMH: ankylosing spondulosis, celiac disease, hashitoxicosis, liver wedge resection, NK Cell defieciency. - Social History Smoking Status: Former smoker Constitutional: Initial Vital Signs Temperature (C) 37.5 C 12/09/16 14:34 Heart Rate 82 12/09/16 14:34 Respiratory Rate 18 12/09/16 14:34 Blood Pressure 141/82 H 12/09/16 14:34 O2 Sat (%) 97 12/09/16 14:34 O2 Delivery Mode Room Air Allergies/Adverse Reactions: nitrofurantoin [From Macrobid] Allergy (Severe, Verified 12/09/16 14:41) Dyspnea levofloxacin [From Levaquin] Allergy (Intermediate, Verified 12/09/16 14:41) Diarrhea Sulfa (Sulfonamide Antibiotics) Allergy (Unknown, Verified 12/09/16 14:41) gluten Allergy (Verified 11/27/16 17:31) Home Medications: Medication Instructions Recorded NK [No Known Home Meds] 12/09/16 Medical Decision Making ED Course/Re-evaluation: 46 year old female presents with four day history of nausea, abdominal pain, and mottled skin area on her abdomen. Physical exam reveals well-healing surgical incisions with some ecchymosis adjacent, no erythema, warmth, or discharge present. She has moderate tenderness just below and slightly to the right of her umbilicus, above incision. Plan for labs including CBC, BMP, and UA. IV established. Plan to administer 1L IV NS. Laboratory studies unremarkable. No evidence of systemic infection or acute electrolyte abnormalities. 17:05 Reassessed patient. I assured her that the mottled skin area is not suggestive of cellulitis. These coker could be due to the heating pad that she has been using intermittently. She would like to be discharged home. I recommended follow up with Dr. Lozano, her general surgeon, for further evaluation. She is asking about her TSH level but I recommended she follow up with her data storage specialist, Dr. Araya, for more thorough endocrine workup. She continues with some right lower quadrant tenderness on exam, no guarding. White blood cell count is normal. Temperature was repeated and is 37 degrees. Postoperative infection/abscess is certainly a possibility, although I do not think that the it is likely. She had a CT scan of her chest and abdomen done on November 27. We discussed repeat scanning but at this point in time I do not recommend scan and she agrees. Urine is not suggestive of urinary tract infection. We discussed the danger signs that should prompt her to return immediately. 17:[address] Arias, general surgeon transportation attendant. She is aware of this patient, and is comfortable with outpatient followup for her. Plan to discharge the patient home in good condition. Follow up and return precautions discussed. She understands she should call Dr. Lozano' office first thing tomorrow morning. She is comfortable with this plan. Differential Diagnosis: I considered a differential diagnosis that includes but is not limited to postoperative infection/abscess, cellulitis, normal postoperative pain, ovarian pathology, and urinary tract infection. - Data Points Laboratory Results: Laboratory Results 12/09/16 15:45 12/09/16 15:45 Medications Given: Discontinued Medications Sodium Chloride (Ns) 1,000 mls @ 0 mls/hr IV ONCE ONE; Wide Open PRN Reason: Protocol Stop: 12/09/16 16:13 Last Admin: 12/09/16 16:15 Dose: 1,000 mls Departure - Departure Disposition: Home, Routine, Self-Care Clinical Impression: Abdominal pain Qualifiers: Abdominal location: right lower quadrant Qualified Code(s): R10.31 - Right lower quadrant pain Condition: Good Instructions: Abdominal Pain (ED) Additional Instructions: 1. Follow up with Dr. Lozano tomorrow. Call his office first thing in the morning. 2. Return to the emergency department for severe, unremitting abdominal pain, uncontrollable vomiting or diarrhea, temperature over 100.4, or other worsening of condition. Referrals: DAVID HERNANDEZ [Primary Care Provider] - As per Instructions Daniel Lozano MD [Medical Doctor] - As per Instructions Report Scribed for: Ghada Campa Report Scribed by: Judith Pro Date of Report: 12/09/16 Time of Report: 15:17 Physician Review and Approval Statement: 12/09/16 15:16 Portions of this note were transcribed by the medical record transcriber. I, Dr. Ghada Campa, personally performed the history, physical exam, and medical decision- making; and confirmed the accuracy of the information in the transcribed note.
[2016-12-09 16:01] LABS: % IMMATURE GRANULYOCYTES 0.3 % (0.0-1.1); ABSOLUTE IMMATURE GRANULOCYTES 0.02 10^3/uL (0.00-0.10); ADD DIFF? NO; ADD MORPH? NO; ADD SCAN? NO; ATYPICAL LYMPHOCYTE FLAG 10 (0-99); FRAGMENT RBC FLAG 0 (0-99); HEMATOCRIT 38.4 % (38.0-47.0); HEMOGLOBIN 12.5 g/dL (12.6-16.3); LEFT SHIFT FLG 0 (0-99); LIPEMIA HEMOLYSIS FLAG 80 (0-99); MEAN CELL HEMOGLOBIN CONCENTR. 32.6 g/dL (32.4-36.7); MEAN CELL VOLUME 92.1 fL (81.5-99.8); MEAN PLATELET VOLUME 10.9 fL (8.7-11.7); PLATELET CLUMPS FLAG 0 (0-99); PLATELET COUNT 276 10^3/uL (150-400); RED BLOOD CELL COUNT 4.17 10^6/uL (4.18-5.33); RED CELL DISTRIBUTION WIDTH 12.7 % (11.5-15.2)
[2016-12-09 16:09] LABS: COLOR COLORLESS; LEUKOCYTE ESTERASE,URINE NEGATIVE (NEGATIVE); NITRITE,URINE NEGATIVE (NEGATIVE)
[2016-12-09 16:11] LABS: BACTERIA TRACE /hpf (NONE SEEN); MUCUS TRACE /lpf (NONE-1+)
[2016-12-09] MEDS ORDERED: NS 1,000 ML IV ONE (16:12)
[2016-12-09 16:13] LABS: ANION GAP 15 mEq/L (8-16); CALCIUM 9.7 mg/dL (8.5-10.4); CARBON DIOXIDE 21 mEq/l (22-31); CHLORIDE 107 mEq/L (97-110); CREATININE 0.7 mg/dL (0.6-1.0); GLOMERULAR FILTRATION RATE > 60; GLUCOSE 95 mg/dL (70-100); POTASSIUM 4.2 mEq/L (3.5-5.2); SODIUM 143 mEq/L (134-144)
[2016-12-09 17:29] VITALS: BP 112/72; PULSE 84; O2SAT 97
== END 2016-12-09 17:34 | disposition home or self-care (01) ==
DX: G89.18 Other acute postprocedural pain (principal); R10.31 Right lower quadrant pain; J45.909 Unspecified asthma, uncomplicated; E86.9 Volume depletion, unspecified

== ENCOUNTER → 2017-02-12 | Outpatient (CLI) | payer BC ==
[~2017-02-12] MED LIST: GADOBUTROL 10 ML VIAL IVP ONE
== END ==
LOC: FIMAGING 15:13
DX: Z03.89 Encounter for observation for other suspected diseases and conditions ruled out (principal); D13.4 Benign neoplasm of liver
CPT/HCPCS: A9585

== ENCOUNTER → 2018-04-01 | Outpatient (CLI) | payer BC | LOC: FIMAGING 08:29 | DX: R92.8 Other abnormal and inconclusive findings on diagnostic imaging of breast (principal) ==

== ENCOUNTER 2018-09-01 11:48 | Emergency (ER) | payer MEDICAID, BC | END 2018-09-01 14:24 | disposition home or self-care (01) ==